=== PATIENT | male | born 1955 | race Two or more races ===

== ENCOUNTER → 2016-10-05 | Day surgery (SDC) | payer BC ==
[~2016-10-05] VITALS: Ht 175.3 cm; Wt 86.2 kg
[2016-10-05] VITALS (8 sets, daily range): BP systolic 109–132; BP diastolic 66–85
[~2016-10-05] MED LIST: ATENOLOL50 MG ORAL; LOSARTAN POTASS50 MG ORAL; LR 1000ml ONE; Lidocaine 1% MPF 10mg/ml 5ml ONE; Propofol 10mg/ml 20ml IV ONE
--- NOTE | 2016-10-05 09:34 | Pre-Procedure Note/Attestation ---
Pre-Procedure Note/Attestation Complete Prior to Procedure Planned Procedure: not applicable Procedure Narrative: egd/colonoscopy Indications for Procedure Pre-Operative Diagnosis: gerd, screening colon Attestation I attest that I discussed the nature of the procedure; its benefits; risks and complications; and alternatives (and the risks and benefits of such alternatives ), prior to the procedure, with the patient (or the patient's legal business process representative). I attest that, if there was a reasonable possibility of needing a blood transfusion, the patient (or the patient's legal business process representative) was given the [facility] standardized written summary, pursuant to the Zay Carlos Eduardo Blood Safety Act ([place] Health and Safety Code # 1645, as amended). I attest that I re-evaluated the patient just prior to the surgery and that there has been no change in the patient's H&P, except as documented below: TITO JUAREZ Oct 05, 2016 09:34
--- NOTE | 2016-10-05 10:11 | Short Stay Surgery H&P ---
History of Present Illness History of Present Illness Chief Complaint gerd, screening colon HPI Juve Conway is a 61 year old male who was admitted on for Colon Screening/ Gerd Patient History Allergies: Coded Allergies: No Known Allergies (Unverified , 07/07/16) PAST MEDICAL HISTORY: (1) HTN (hypertension) Past Surgeries: Social History: Medication History Scheduled Atenolol* (Tenormin*), 50 MG ORAL DAILY, (Reported) Losartan Potassium* (Losartan Potassium*), 50 MG ORAL DAILY, (Reported) Review of Systems Cardiovascular: Reports: no symptoms Respiratory: Reports: no symptoms Skeletal: Reports: no symptoms Gastrointestinal: Reports: no symptoms Genitourinary: Reports: no symptoms Neurologic: Reports: no symptoms Endocrine: Reports: no symptoms Hematologic: Reports: no symptoms Physical Exam Skin: normal HENT: normal Heart: normal Lungs: normal Abdomen: normal Extremities: normal Plan Plan of Care egd/colon Final Diagnosis: Attestation Are the patient's medical conditions optimized for surgery? Attestation Response: yes TITO JUAREZ Oct 05, 2016 10:11
--- NOTE | 2016-10-05 10:27 | Anethesia Preoperative Eval ---
Anesthesia Pre-op PMH/ROS General Date of Evaluation: Oct 05, 2016 Time of Evaluation: 10:23 Anesthesiologist: britany ASA Score: ASA 2 Mallampati Score Class I : Soft palate, uvula, fauces, pillars visible Class II: Soft palate, uvula, fauces visible Class III: Soft palate, base of uvula visible Class IV: Only hard plate visible Mallampati Classification: Class II Surgeon: montrell Diagnosis: gerd Surgical Procedure: egd/colon screening Anesthesia History: none Social History: alcohol use Family History: no anesthesia problems Allergies: Coded Allergies: No Known Allergies (Unverified , 07/07/16) Medications: see eMAR Past Medical History Cardiovascular: Reports: HTN Pulmonary: Denies: COPD, ERASMO, asthma, other Gastrointestinal/Genitourinary: Reports: GERD Neurologic/Psychiatric: Denies: CVA, TIA, dementia, depression/anxiety, other Endocrine: Denies: DM, hypothyroidism, other, steroids HEENT: Denies: [place] (L), [place] (R), cataract (L), cataract (R), glaucoma, other Hematology/Immune: Denies: DVT, anemia, bleeding disorder, other Musculoskeletal/Integumentary: Denies: DDD, DJD, OA, RA, edema, other PSxH Narrative: none Anesthesia Pre-op Phys. Exam Physician Exam Last Vital Signs Date Time Temp Pulse Resp B/P Pulse Ox O2 Delivery O2 Flow Rate FiO2 10/05/16 10:13 98.0 54 18 132/70 98 Room Air Constitutional: NAD Neurologic: CN 2-12 intact Cardiovascular: RRR Respiratory: CTA Gastrointestinal: S/NT/ND Airway Exam Mallampati Score: Class II MO: full ROM: full Dentures: no lower, no upper Anesthesia Pre-op A/P Studies Pre-op Studies: EKG - sr Risk Assessment & Plan Plan: mac Status Change Before Surgery: No Pre-Antibiotics Drug: none MARIA PATTERSON CRNA Oct 05, 2016 10:27
--- NOTE | 2016-10-05 10:47 | Endoscopy Procedure Note ---
Endoscopy Procedure Note Indication for Procedure: screening colon, GERD Procedures Performed: EGD, colonoscopy Operative Findings/Diagnosis: gastritis, colon polyp x7 Specimen: yes Pt Tolerated Procedure Well: Yes Estimated Blood Loss: none Anesthesiologist: genaro Anesthesia: MAC Implant(s) used?: No 50 yrs or older w/o bx or poly: No 10yrs. F/U not recommended: Yes If not recommended, why?: Above average risk 10 yrs. F/U needed: Yes 18 years or older w/prev. colo: No TITO JUAREZ Oct 05, 2016 10:47
--- NOTE | 2016-10-05 11:00 | Immediate Post-Op Evaluation ---
Immediate Post-Op Evalulation Immediate Post-Op Evalulation Procedure: gd/colon Date of Evaluation: Oct 05, 2016 Time of Evaluation: 10:59 IV Fluids: 500 Blood Pressure Systolic: 109 Blood Pressure Diastolic: 65 Pulse Rate: 65 O2 Sat by Pulse Oximetry: 98 Temperature (Fahrenheit): 97.4 Nausea: No Vomiting: No Complications none Patient Status: awake, patent Hydration Status: adequate Drug: none MARIA PATTERSON CRNA Oct 05, 2016 11:00
--- NOTE | 2016-10-05 11:14 | 48 Hour Post Anesthesia Eval ---
Post Anesthesia Evaluation Procedure: gd/colon Date of Evaluation: Oct 05, 2016 Time of Evaluation: 11:13 Blood Pressure Systolic: 125 0: 72 Pulse Rate: 65 O2 Sat by Pulse Oximetry: 97 Airway: patent Nausea: No Vomiting: No Hydration Status: adequate Mental Status/LOC: patient returned to baseline Post-Anesthesia Complications: none Follow-up care needed: N/A MARIA PATTERSON CRNA Oct 05, 2016 11:14
--- NOTE | 2016-10-05 18:18 | Procedure Note ---
DATE OF PROCEDURE: 10/05/2016 SURGEON: Lit Foote M.D. PROCEDURE: Upper endoscopy with biopsy and colonoscopy with biopsy. ANESTHESIA: Per TRACK SERVICE PERSON, Janna Tarrillion. INSTRUMENT: Olympus adult flexible upper endoscope and colonoscope. INDICATION: 1. Screening colonoscopy. 2. Chronic GERD. REASON FOR PROCEDURE: The procedure, risks, benefits, and possible consequences, including hemorrhage, aspiration, perforation and infection, and alternative treatments, were explained to the patient/legal guardian by Dr. Lit Foote and the patient/legal guardian understood and accepted these risks. DESCRIPTION OF PROCEDURE: After informed consent was obtained and the patient was adequately sedated, Olympus upper endoscope was advanced from the mouth into the second portion of the duodenum and retroflexion was performed in the stomach. The patient had diffuse gastritis. Random biopsy from antrum of the stomach was obtained to rule out H. pylori infection. Otherwise, the rest of the endoscopic examination was grossly within normal limits. At this time, the upper endoscope was retrieved and the patient was turned over for colonoscopy. First, a rectal exam was performed, which shows normal. Then, the scope was advanced from the rectum into the cecum documented by appendiceal orifice, ileocecal valve, and right upper quadrant palpation. Quality of prep was very good. The patient had a total of seven diminutive polyps in this colonoscopy examination, two in the transverse and five in the rectosigmoid area, all were removed with the cold biopsy forceps technique. Retroflexion of rectum showed evidence of medium sized nonbleeding internal hemorrhoids. The patient tolerated the procedure very well without any complication. SUMMARY OF FINDINGS: 1. Gastritis, status post biopsy. 2. Seven polyps removed, see above for details. 3. Internal hemorrhoids. RECOMMENDATIONS: 1. Follow up biopsies and treat accordingly. 2. Given seven polyps, we recommend repeat colonoscopy in three years. I want to thank, Dr. Conway, for this kind referral. Lit Foote M.D. DR: CANELO JOB#: [id number] CC: Mandy Conway M.D.
--- NOTE | 2016-10-06 20:27 | Cardiology Report ---
APPROVED REPORT EKG Measurement Heart [id number] Normal sinus rhythm Right bundle branch block Abnormal ECG
== END | disposition home or self-care (01) ==
LOC: GAS 08:19
DX: Z12.11 Encounter for screening for malignant neoplasm of colon (principal); D12.3 Benign neoplasm of transverse colon; D12.7 Benign neoplasm of rectosigmoid junction; K64.8 Other hemorrhoids; K21.9 Gastro-esophageal reflux disease without esophagitis; K29.50 Unspecified chronic gastritis without bleeding; I10 Essential (primary) hypertension
CPT/HCPCS: 43239; 45380; 93005; J2704; J7120; 94003; 94150

== ENCOUNTER 2018-04-04 13:01 | Outpatient (CLI) | payer BC ==
[~2018-04-04 13:01] MED LIST changes: -LR 1000ml ONE; -Lidocaine 1% MPF 10mg/ml 5ml ONE; -Propofol 10mg/ml 20ml IV ONE
[2018-04-04] MEDS ORDERED: AMOXICILLIN500 MG ORAL (14:03)
== END 2018-04-04 15:01 | disposition home or self-care (01) ==
LOC: LAB 13:01
DX: R55 Syncope and collapse (principal); I10 Essential (primary) hypertension; D64.9 Anemia, unspecified

== ENCOUNTER 2018-04-04 13:23 | Emergency (ER) | payer SELFPAY ==
[~2018-04-04] VITALS: Ht 175.3 cm; Wt 89.8 kg
[2018-04-04] MEDS ORDERED: AMOXICILLIN500 MG ORAL (14:03)
[2018-04-04 14:15] VITALS: BP 110/66
[2018-04-04 14:16] VITALS: BP 110/66
--- NOTE | 2018-04-04 17:20 | Emergency Room Report ---
History of Present Illness General Chief Complaint: Fever Source: Patient Present Illness HPI 62-year-old male presents ED for evaluation. Patient states he's been having fevers on and off for the last 4 days. Takes Tylenol with symptoms resolving. Afebrile in triage also complaining of sinus congestion and headaches. Pain is dull, 6 out of 10, nonradiating. Denies cough. Denies neck stiffness. Denies sick contacts or recent travel. No other aggravating relieving factors. Denies any other associated symptoms Allergies: Coded Allergies: No Known Allergies (Unverified , 07/07/16) Patient History Past Medical History: HTN Past Surgical History: none Pertinent Family History: none Social History: Denies: smoking, alcohol use, drug use Immunizations: UTD Reviewed Nursing Documentation: PMH: Agreed; PSxH: Agreed Nursing Documentation-PMH Past Medical History: No History, Except For Hx Cardiac Problems: Yes Hx Hypertension: Yes Hx Cancer: No Hx Gastrointestinal Problems: No Hx Neurological Problems: No Review of Systems All Other Systems: negative except mentioned in HPI Physical Exam Vital Signs Date Time Temp Pulse Resp B/P (MAP) Pulse Ox O2 Delivery O2 Flow Rate FiO2 04/04/18 13:32 99.7 91 22 101/48 95 Room Air 99.7 Sp02 EP Interpretation: reviewed, normal General Appearance: no apparent distress, alert, GCS 15, non-toxic Head: normocephalic, atraumatic Eyes: bilateral eye normal inspection, bilateral eye PERRL ENT: hearing grossly normal, normal pharynx, no angioedema, normal voice, TMs + canals normal - poor light reflex bilateral TM Neck: full range of motion, supple, no meningismus, supple/symm/no masses Respiratory: chest non-tender, lungs clear, normal breath sounds, speaking full sentences Cardiovascular #1: regular rate, rhythm, no edema Cardiovascular #2: 2+ carotid (R), 2+ carotid (L), 2+ radial (R), 2+ radial (L) , 2+ dorsalis pedis (R), 2+ dorsalis pedis (L) Gastrointestinal: normal bowel sounds, non tender, soft, non-distended, no guarding, no rebound Rectal: deferred Genitourinary: normal inspection, no CVA tenderness Musculoskeletal: back normal, gait/station normal, normal range of motion, non- tender Neurologic: alert, oriented x3, responsive, motor strength/tone normal, sensory intact, speech normal Psychiatric: judgement/insight normal, memory normal, mood/affect normal, no suicidal/homicidal ideation Reflexes: 3+ bicep (R), 3+ bicep (L), 3+ tricep (R), 3+ tricep (L), 3+ knee (R) , 3+ knee (L) Skin: normal color, no rash, warm/dry, well hydrated Lymphatic: no adenopathy Medical Decision Making Diagnostic Impression: Primary Impression: Sinus infection Qualified Codes: J01.90 - Acute sinusitis, unspecified Additional Impression: Otitis media Qualified Codes: H66.93 - Otitis media, unspecified, bilateral ER Course Hospital Course 62-year-old M presents to ED complaining of nasal congestion. intermittent fever. ear pain Differential diagnoses include: URI, pharyngitis, otitis media, asthma Clinical course Patient placed on stretcher. After initial history, physical exam reveals a male in no acute distress. Bilateral TM cloudy. No pharyngeal erythema. No tonsillar exudates. No lymphadenopathy. lungs clear. abdomen soft. bilateral maxillary sinus TTP. no nuchal rigidty concern for bilateral otitis media with possible sinus infection. We will treat with antibiotics Diagnosis - sinusitits, otitis media Stable and discharged home with prescriptions for Amoxicillin. Instructed to followup with PMD. Return to ED if symptoms recur or worsen Last Vital Signs Date Time Temp Pulse Resp B/P (MAP) Pulse Ox O2 Delivery O2 Flow Rate FiO2 04/04/18 14:16 100.6 91 16 110/66 95 Room Air Status: improved Disposition: HOME, SELF-CARE Condition: Stable Scripts Amoxicillin* (AMOXIL*) 500 Mg Capsule 500 MG ORAL THREE TIMES A DAY for 10 Days, #30 CAP Prov: aMrcelo Culver MD 04/04/18 Referrals: NOT CHOSEN IPA/,REFERRING (PCP) Patient Instructions: Sinusitis, Adult, [id number] Marcelo Culver MD Apr 04, 2018 17:20
== END 2018-04-04 14:45 | disposition home or self-care (01) ==
LOC: EMR 14:35
DX: J32.9 Chronic sinusitis, unspecified (principal); H66.93 Otitis media, unspecified, bilateral; I10 Essential (primary) hypertension
CPT/HCPCS: 99283

== ENCOUNTER 2018-04-06 19:45 | Emergency (ER) | payer BC ==
[~2018-04-06] VITALS: Ht 175.3 cm; Wt 86.2 kg
[~2018-04-06 19:45] MED LIST changes: +AMOXICILLIN500 MG ORAL
--- NOTE | 2018-04-06 20:44 | Diagnostic Imaging Report ---
EXAM: XR Chest, 1 View CLINICAL HISTORY: Infection TECHNIQUE: Frontal view of the chest. COMPARISON: No relevant prior studies available. FINDINGS: Lungs: Unremarkable. No consolidation. Pleural space: Unremarkable. No pneumothorax. Heart: Unremarkable. No cardiomegaly. Mediastinum: Unremarkable. Bones/joints: No acute osseous abnormality. IMPRESSION: No acute cardiopulmonary process.
[2018-04-06 20:55] LABS: BASOPHILS % (AUTO) 0.7 % (0.0-2.0); EOSINOPHILS % (AUTO) 0.2 % (0.0-3.0); HEMATOCRIT 41.6 % (42.0-52.0); HEMOGLOBIN 13.3 G/DL (14.2-18.0); LYMPHOCYTES % (AUTO) 11.5 % (20.0-45.0); MEAN CORPUSCULAR VOLUME 67 FL (80-99); MONOCYTES % (AUTO) 9.9 % (1.0-10.0); NEUTROPHILS % (AUTO) 77.7 % (45.0-75.0); PLATELET COUNT 161 K/UL (150-450); RED BLOOD COUNT 6.23 M/UL (4.70-6.10); RED CELL DISTRIBUTION WIDTH 12.7 % (11.6-14.8); WHITE BLOOD COUNT 11.4 K/UL (4.8-10.8)
[2018-04-06 20:56] LABS: ANION GAP 5 mmol/L (5-15); BLOOD UREA NITROGEN 14 mg/dL (7-18); CARBON DIOXIDE 32 MMOL/L (21-32); CHLORIDE 91 MMOL/L (98-107); CREATININE 1.5 MG/DL (0.55-1.30); POTASSIUM 3.4 MMOL/L (3.5-5.1); SODIUM 128 MMOL/L (136-145)
[2018-04-06 21:01] LABS: ALANINE AMINOTRANSFERASE 134 U/L (12-78); ALBUMIN 3.2 G/DL (3.4-5.0); ALBUMIN/GLOBULIN RATIO 0.7 (1.0-2.7); ALKALINE PHOSPHATASE 165 U/L (46-116); ASPARTATE AMINO TRANSFERASE 70 U/L (15-37); BILIRUBIN,TOTAL 0.6 MG/DL (0.2-1.0)
[2018-04-06 21:13] LABS: APPEARANCE,URINE CLEAR; BILIRUBIN, URINE NEGATIVE (NEGATIVE); COLOR,URINE YELLOW; GLUCOSE, URINE (UA) NEGATIVE (NEGATIVE); KETONES,URINE NEGATIVE (NEGATIVE); LEUKOCYTE ESTERASE ,URINE 1+ (NEGATIVE); NITRITE,URINE NEGATIVE (NEGATIVE); PH,URINE 7 (4.5-8.0); PROTEIN,URINE 2+ (NEGATIVE); UROBILINOGEN,URINE 1 MG/DL (0.0-1.0)
--- NOTE | 2018-04-06 21:16 | Emergency Room Report ---
History of Present Illness General Chief Complaint: Fever Source: Patient Present Illness HPI Patient is 62-year-old male is presenting with intermittent fevers for approximately one weeks duration. Patient states relief with Tylenol or Motrin at home but then the fever returned soon afterwards. He denies any cough, shortness of breath, abdominal or chest pain, or dysuria. The patient also denies any medical problems. Allergies: Coded Allergies: No Known Allergies (Unverified , 07/07/16) Patient History Past Medical History: none Past Surgical History: none Pertinent Family History: none Social History: Denies: smoking, alcohol use, drug use Nursing Documentation-[facility] Hx Cardiac Problems: Yes Hx Hypertension: Yes Hx Cancer: No Hx Gastrointestinal Problems: No Hx Neurological Problems: No Review of Systems Constitutional: Reports: chills, fever; Denies: no symptoms, see HPI, sweats, malaise, weakness, other Eye: Denies: no symptoms, see HPI, eye pain, blurred vision, tearing, double vision, nose pain, nose congestion, acuity changes, discharge, other ENT: Denies: no symptoms, see HPI, ear pain, ear discharge, nose pain, nose congestion, throat pain, throat swelling, mouth pain, hearing loss, nasal discharge, other Respiratory: Denies: no symptoms, see HPI, cough, orthopnea, shortness of breath, stridor, wheezing, RIOS, sputum, other Cardiovascular: Denies: no symptoms, see HPI, chest pain, edema, palpitations, syncope, PND, other Gastrointestinal: Denies: no symptoms, see HPI, abdominal pain, constipation, diarrhea, nausea, vomiting, melena, hematemesis, other Musculoskeletal: Denies: no symptoms, see HPI, back pain, gout, joint pain, joint swelling, muscle pain, muscle stiffness, other Psychiatric: Denies: no symptoms, see HPI, prior hx, anxiety, depressed feelings, emotional problems, SI, HI, hallucinations, other Neurological: Denies: no symptoms, see HPI, headache, numbness, paresthesia, seizure, tingling, tremors, focal weakness, syncope, dizziness, other Endocrine: Denies: no symptoms, see HPI, excessive sweating, flushing, intolerance to temperature, increased thirst, increased urine, unexplained weight loss, other Hematologic/Lymphatic: Denies: no symptoms, see HPI, anemia, blood clots, easy bleeding, easy bruising, swollen glands, diathesis, other Physical Exam Vital Signs Date Time Temp Pulse Resp B/P (MAP) Pulse Ox O2 Delivery O2 Flow Rate FiO2 04/06/18 19:49 99.5 82 16 123/78 95 Room Air 99.5 Sp02 EP Interpretation: reviewed, normal General Appearance: no apparent distress, alert, GCS 15, non-toxic Head: normocephalic, atraumatic Eyes: bilateral eye normal inspection, bilateral eye PERRL ENT: hearing grossly normal, normal pharynx, no angioedema, normal voice Neck: full range of motion, supple/symm/no masses Respiratory: chest non-tender, lungs clear, normal breath sounds, speaking full sentences Cardiovascular #1: regular rate, rhythm, no edema Cardiovascular #2: 2+ carotid (R), 2+ carotid (L), 2+ radial (R), 2+ radial (L) , 2+ dorsalis pedis (R), 2+ dorsalis pedis (L) Gastrointestinal: normal bowel sounds, non tender, soft, non-distended, no guarding, no rebound Rectal: deferred Genitourinary: normal inspection, no CVA tenderness Musculoskeletal: back normal, gait/station normal, normal range of motion, non- tender, calf tenderness Neurologic: alert, oriented x3, responsive, motor strength/tone normal, sensory intact, speech normal Psychiatric: judgement/insight normal, memory normal, mood/affect normal, no suicidal/homicidal ideation Reflexes: 3+ bicep (R), 3+ bicep (L), 3+ tricep (R), 3+ tricep (L), 3+ knee (R) , 3+ knee (L) Skin: normal color, no rash, warm/dry, well hydrated Lymphatic: no adenopathy Medical Decision Making Diagnostic Impression: Primary Impression: Sinus infection Qualified Codes: J01.90 - Acute sinusitis, unspecified ER Course Patient is a 62-year-old male with fever. Initial evaluation shows patient in no distress with a relatively normal exam. The patient did not mention he had been here 2 days ago but review of his medical records shows that he was seen here in the emergency department 48 hours ago and diagnosed with a sinus infection. He was sent home with amoxicillin. Patient states he is continuing the amoxicillin but is still having fevers. I have explained to him that the fevers are to be expected for at least the next several days well at the antibiotics kick in. We also discussed whether this is truly a bacterial or perhaps a viral infection and whether the antibiotics will help at all. In either case I explained to the patient that he will have to wait until the infection begins to clear prior to the fever coming down. He will return for any new worsening concerning symptoms. However, there is no evidence of meningitis or meningismus on physical examination. Patient will follow up with his primary care physician. Laboratory Tests Test 04/06/18 20:20 04/06/18 20:30 White Blood Count 11.4 K/UL (4.8-10.8) H Red Blood Count 6.23 M/UL (4.70-6.10) H Hemoglobin 13.3 G/DL (14.2-18.0) L Hematocrit 41.6 % (42.0-52.0) L Mean Corpuscular Volume 67 FL (80-99) L Mean Corpuscular Hemoglobin 21.3 PG (27.0-31.0) L Mean Corpuscular Hemoglobin Concent 31.9 G/DL (32.0-36.0) L Red Cell Distribution Width 12.7 % (11.6-14.8) Platelet Count 161 K/UL (150-450) Mean Platelet Volume 8.3 FL (6.5-10.1) Neutrophils (%) (Auto) 77.7 % (45.0-75.0) H Lymphocytes (%) (Auto) 11.5 % (20.0-45.0) L Monocytes (%) (Auto) 9.9 % (1.0-10.0) Eosinophils (%) (Auto) 0.2 % (0.0-3.0) Basophils (%) (Auto) 0.7 % (0.0-2.0) Sodium Level 128 MMOL/L (136-145) L Potassium Level 3.4 MMOL/L (3.5-5.1) L Chloride Level 91 MMOL/L (98-107) L Carbon Dioxide Level 32 MMOL/L (21-32) Anion Gap 5 mmol/L (5-15) Blood Urea Nitrogen 14 mg/dL (7-18) Creatinine 1.5 MG/DL (0.55-1.30) H Estimate Glomerular Filtration Rate 47.6 mL/min (>60) Glucose Level 136 MG/DL (74-106) H Lactic Acid Level 0.90 mmol/L (0.4-2.0) Calcium Level 9.0 MG/DL (8.5-10.1) Total Bilirubin 0.6 MG/DL (0.2-1.0) Aspartate Amino Transferase (AST) 70 U/L (15-37) H Alanine Aminotransferase (ALT) 134 U/L (12-78) H Alkaline Phosphatase 165 U/L (46-116) H Total Protein 7.8 G/DL (6.4-8.2) Albumin 3.2 G/DL (3.4-5.0) L Globulin 4.6 g/dL Albumin/Globulin Ratio 0.7 (1.0-2.7) L Urine Color Yellow Urine Appearance Clear Urine pH 7 (4.5-8.0) Urine Specific [place] 1.010 (1.005-1.035) Urine Protein 2+ (NEGATIVE) H Urine Glucose (UA) Negative (NEGATIVE) Urine Ketones Negative (NEGATIVE) Urine Occult Blood 5+ (NEGATIVE) H Urine Nitrite Negative (NEGATIVE) Urine Bilirubin Negative (NEGATIVE) Urine Urobilinogen 1 MG/DL (0.0-1.0) H Urine Leukocyte Esterase 1+ (NEGATIVE) H Urine RBC 2-4 /HPF (0 - 0) H Urine WBC 2-4 /HPF (0 - 0) Urine Squamous Epithelial Cells None /LPF (NONE/OCC) Urine Bacteria Few /HPF (NONE) Urine Yeast Few /HPF (NONE) H Chest X-Ray Diagnostic Results Chest X-Ray Diagnostic Results : PA Xray: Interpretation reviewed Interpretation: no consolidation, no effusion, no pneumothorax Last Vital Signs Date Time Temp Pulse Resp B/P (MAP) Pulse Ox O2 Delivery O2 Flow Rate FiO2 04/06/18 19:49 99.5 82 16 123/78 95 Room Air 99.5 Disposition: HOME, SELF-CARE Condition: Stable Patient Instructions: Fever, Adult, [id number] Senthil Maxwell MD Apr 06, 2018 21:16
[2018-04-06 21:39] VITALS: BP 123/78
== END 2018-04-06 22:03 | disposition home or self-care (01) ==
LOC: EMR 21:15
DX: J01.90 Acute sinusitis, unspecified (principal); I10 Essential (primary) hypertension
CPT/HCPCS: 36415; 71045; 80053; 81003; 83605; 85025; 87086; 99283